=== PATIENT | male | born 1935 | race Caucasian/White ===

== ENCOUNTER 2022-11-30 06:02 | Day surgery (SDC) | payer OTHER, MEDICARE, BC ==
[2022-11-23 14:51] LABS: BASOPHILS % (AUTO) 1.1 % (0-1); EOSINOPHILS # (AUTO) 0.1 X10'3 (0-0.9); EOSINOPHILS % (AUTO) 1.7 % (0-6); LYMPHOCYTES # (AUTO) 1.2 X10'3 (1.1-4.8); LYMPHOCYTES % (AUTO) 28.1 % (21-51); MEAN CORPUSCULAR HEMOGLOBIN 31.1 PG (27.0-31.0); MEAN CORPUSCULAR HGB CONC 33.6 g/dL (33.0-36.5); MEAN CORPUSCULAR VOLUME 92.6 FL (78-98); MEAN PLATELET VOLUME 7.1 FL (7.4-10.4); MONOCYTES # (AUTO) 0.5 X10'3 (0-0.9); MONOCYTES % (AUTO) 11.9 % (2-12); NEUTROPHILS # (AUTO) 2.4 X10'3 (1.8-7.7); NEUTROPHILS % (AUTO) 57.2 % (42-75); PRE OP HEMATOCRIT 40.8 % (42.0-52.0); PRE OP HEMOGLOBIN 13.7 g/dL (14.0-17.9); PRE OP PLATELET COUNT 209 X10'3 (140-440); RED BLOOD COUNT 4.41 X10'6 (4.70-6.10); RED CELL DISTRIBUTION WIDTH 13.1 % (11.5-14.5)
[2022-11-23 15:04] LABS: ALBUMIN 3.9 G/DL (3.4-5.0); ALBUMIN/GLOBULIN RATIO 1.1 (1.1-1.5); ALKALINE PHOSPHATASE 70 IU/L (46-116); BLOOD UREA NITROGEN 12 MG/DL (7-18); CHLORIDE 105 MMOL/L (99-107); PRE OP ALT 19 U/L (30-65); PRE OP ANION GAP 8 (8-16); PRE OP AST 21 U/L (10-37); PRE OP BILIRUB, TOTAL 0.6 MG/DL (0.0-1.0); PRE OP GLUCOSE 101 MG/DL (70-104); PRE OP POTASSIUM 3.9 MMOL/L (3.4-5.1); PRE OP SODIUM 140 MMOL/L (135-145); TOTAL CARBON DIOXIDE 27.2 MMOL/L (24-32); TOTAL PROTEIN 7.5 G/DL (6.4-8.2); eGFR 58 ML/MIN
[~2022-11-30] VITALS: Ht 182.9 cm; Wt 89.4 kg
[~2022-11-30 06:02] MED LIST: CHOL200013 PO; CYAN100097 PO; DILT180C89 PO; OMEP20CA16 PO; SIMV10TA98 PO; TERA2CAP4 PO; ceFAZolin inj. 2,000 MG in dextrose 5%-water 100 ML IV ONE; famotidine 20mg tablet PO ONE; metoprolol tartrate 12.5mg (1/2 tablet) PO ONE; ringers solution, lacted 1,000 ML IV SCH
[2022-11-30 06:10] VITALS: BP 139/76
[2022-11-30] MEDS ORDERED: LIDOcaine 1% 30ml preserv. free vial ONE (07:08)
[2022-11-30] MEDS ORDERED: ceFAZolin 1000mg inj ONE (07:08)
[2022-11-30] MEDS ORDERED: BUPIVAcaine/PF 5 mg/ml 10ml ONE (07:09)
[2022-11-30] MEDS ORDERED: fentaNYL/PF 50MCG/1 ML 2ML syringe ONE (07:57)
[2022-11-30] MEDS ORDERED: midazolam 1 mg/ML 2ml injection ONE (07:58)
[2022-11-30] MEDS ORDERED: propofol inj 20 ML IV ONE (08:22)
[2022-11-30 08:30] VITALS: BP 110/61
--- NOTE | 2022-11-30 08:30 | NUR ---
Received from OR via , accompanied by Anesthesiologist and report given by Anesthesiolgist. PATIENT A&OX4, DENIES PAIN, V/S WNL, SCD ON , PIV 20G LUE, DERMABONDEDW/ STERI STRIPS LEFT CHEST CDI
[2022-11-30] MEDS ORDERED: ondansetron/PF 4mg/2ml inj IV PRN (08:35)
[2022-11-30] MEDS ORDERED: morphine 4 MG/ML inj SYRINge IV PRN (08:35)
[2022-11-30] MEDS ORDERED: ringers solution, lacted 1,000 ML IV SCH (08:35)
[2022-11-30] MEDS ORDERED: meperidine/PF 25mg/ml syringe IV PRN ×3 (08:35)
[2022-11-30] MEDS ORDERED: proCHLORperazine 10 MG/2 ml inj IV PRN (08:35)
[2022-11-30] MEDS ORDERED: morphine 2 MG/ML inj. syringe IV PRN (08:35)
[2022-11-30 08:40] VITALS: BP 116/58
[2022-11-30 08:50] VITALS: BP 101/66
[2022-11-30 09:00] VITALS: BP 112/68
[2022-11-30 09:10] VITALS: BP 109/65
--- NOTE | 2022-11-30 09:10 | NUR ---
PATIENT A&OX4, DENIES PAIN, V/S WNL, SCD OFF , PIV 20G LUE D/C, CLEAR TEGADERM W/ STERI STRIPS LEFT CHEST CDI. I HAVE REVIEWED D/C INSTRUCTIONS WITH PATIENT AND THEY HAVE VERBALIZED UNDERSTANDING OF INSTRUCTIONS. PATIENT D/C HOME WITH ALL BELONGINGS AND FAMILY GAVE TRANSPORT
--- NOTE | 2022-11-30 09:10 | NUR ---
PATIENT A&OX4, DENIES PAIN, V/S WNL, SCD O , PIV 20G LUE, DERMABONDEDW/ STERI STRIPS LEFT CHEST CDI
== END 2022-11-30 09:10 | disposition home or self-care (01) ==
LOC: PAS 06:02
PROVIDERS: ATTEND Thoracic Surgery (Cardiothoracic Vascular Surgery)
DX: Z45.010 Encounter for checking and testing of cardiac pacemaker pulse generator [battery] (principal); I10 Essential (primary) hypertension; E78.5 Hyperlipidemia, unspecified; G47.30 Sleep apnea, unspecified; M19.90 Unspecified osteoarthritis, unspecified site; K21.9 Gastro-esophageal reflux disease without esophagitis; Z79.899 Other long term (current) drug therapy; Z88.8 Allergy status to other drugs, medicaments and biological substances; Z87.891 Personal history of nicotine dependence; Z90.49 Acquired absence of other specified parts of digestive tract; Z98.890 Other specified postprocedural states
CPT/HCPCS: 33228; 36415; 80053; 82948; 85025; A6258; C1785; J0690; J2250; J2704; J3010; J3490; J7030; J7060; J7120; Z7506; Z7512; A4215; A4618; A7000

== ENCOUNTER 2023-08-01 06:08 | Inpatient (IN) | payer OTHER, MEDICARE, BC ==
[2023-08-01] VITALS (25 sets, daily range): BP systolic 87–144; BP diastolic 40–74; PULSE 59–75; RESP 10–20; TEMP 96.9–98.4; O2SAT 94–100
[~2023-08-01] VITALS: Ht 182.9 cm; Wt 88.5 kg
[~2023-08-01 06:08] MED LIST changes: +ACET-3414 PO; -ceFAZolin inj. 2,000 MG in dextrose 5%-water 100 ML IV ONE; +cefazolin 2gm/D5W 100mL 100 ML IV ONE; -metoprolol tartrate 12.5mg (1/2 tablet) PO ONE; -ringers solution, lacted 1,000 ML IV SCH; +tranexamic acid inj. 1,000 MG in normal saline IV soln 100ML IV ONE
[2023-08-01] MEDS: ringers solution, lacted 1,000 ML IV SCH ×2 (06:39→12:04)
[2023-08-01] MEDS ORDERED: vancomycin 1,000mg inj ONE (06:55)
[2023-08-01] MEDS ORDERED: methylene blue (5mg/ml) 50mg/10ml ampul IV ONE (07:18)
[2023-08-01] MEDS ORDERED: cloNIDine hcl/PF 100mcg/ml inj ONE (07:21)
[2023-08-01] MEDS ORDERED: sevoflurane 250ml liquid IH ONE (07:25)
[2023-08-01] MEDS ORDERED: fentaNYL/PF 50MCG/1 ML 2ML syringe ONE ×2 (07:28→10:20)
[2023-08-01] MEDS ORDERED: acetaminophen 325mg tablet PO PRN (07:30)
[2023-08-01] MEDS ORDERED: magnesium hydroxide 30ml (MOM) UD suspension PO PRN (07:30)
[2023-08-01] MEDS ORDERED: ondansetron/PF 4mg/2ml inj IV PRN ×2 (07:30→08:25)
[2023-08-01] MEDS ORDERED: midazolam 1 mg/ML 2ml injection ONE (07:30)
[2023-08-01] MEDS ORDERED: bisacodyl 10mg suppository rectal RC PRN (07:30)
[2023-08-01] MEDS ORDERED: diphenhydrAMINE 25mg capsule PO PRN (07:30)
[2023-08-01] MEDS ORDERED: HYDROcodone/acetaminophen 10/325mg tab PO PRN (07:30)
[2023-08-01] MEDS ORDERED: naloxone 0.4 mg/ml inj IV PRN (07:30)
[2023-08-01] MEDS ORDERED: ringers solution, lacted 1,000 ML IV SCH (08:25)
[2023-08-01] MEDS ORDERED: morphine 2 MG/ML inj. syringe IV PRN (08:25)
[2023-08-01] MEDS ORDERED: HYDROmorphone/PF 0.2 MG/ML SYRINGE IV PRN ×2 (08:25)
[2023-08-01 08:44] LABS: BILIRUBIN,URINE NEGATIVE (Neg); CLARITY,URINE CLEAR (Clear); COLOR,URINE YELLOW (Yellow); GLUCOSE, URINE NEGATIVE (Neg); KETONES,URINE NEGATIVE (Neg); LEUKOCYTE ESTERASE ,URINE NEGATIVE (Neg); NITRITES, URINE NEGATIVE (Neg); OCCULT BLOOD,URINE NEGATIVE (Neg); PH,URINE 6.5 (4.8-8.0); PROTEIN,URINE NEGATIVE (Neg); UROBILINOGEN,URINE 0.2 E.U/dL (0.2-1.0)
[2023-08-01 08:47] LABS: UA COLLECTION TYPE CLN CATCH MIDSTREAM
[2023-08-01] MEDS ORDERED: dexamethasone sod phosphate 4mg/ml inj. ONE (09:25)
[2023-08-01] MEDS ORDERED: ondansetron/PF 4mg/2ml inj ONE (09:25)
[2023-08-01] MEDS ORDERED: rocuronium 10mg/ml inj IV ONE (09:25)
[2023-08-01] MEDS ORDERED: ePHEDrine 50MG/ML INJ. ONE (09:25)
[2023-08-01] MEDS ORDERED: LIDOcaine 1%/PF 5ML 10 MG/ML VIAL ONE (09:25)
[2023-08-01] MEDS ORDERED: acetaminophen 1,000mg/100ml IV 100 ML IV ONE (09:25)
[2023-08-01] MEDS ORDERED: propofol inj 20 ML IV ONE (09:25)
[2023-08-01] MEDS ORDERED: ROPIVAcaine 0.5% (5mg/ml) 30ml vial ONE (09:25)
[2023-08-01] MEDS ORDERED: neostigmine methylsulfate 1 MG/ML 10ml vial ONE (10:27)
[2023-08-01] MEDS ORDERED: glycopyrrolate 0.2mg/ml inj ONE (10:27)
--- NOTE | 2023-08-01 10:48 | NUR ---
Received from OR via [facility], accompanied by Anesthesiologist DR. LONGORIA and report given by Anesthesiolgist. PLAN FOR PATIENT TO STAY OVERNIGHT PER DR. PAYAN ORDER DUE TO ADVANCED AGE, BREATHING/CPAP USE, COMORBIDITIES. DR. LONGORIA PERFORMING JAW THRUST, PATIENT ON 10L MASK SATURATIONS 100% ON LEFT EAR PROBE. HYPORTENSIVE. LR RUNNING AT ORDERED RATE. OCCASIONALLY ATRIAL PACED, 100% VENTRICULARLY PACED. LEFT SHOULDER ISLAND DRESSING WITH ROSE SLEEVE AND POWDER PACK PLACED.
--- NOTE | 2023-08-01 12:48 | NUR ---
PATIENT MEETS DISCHARGE CRITERIA FROM RECOVERY. REPORT CALLED TO ANJELICA Carrillo RN. TRANSFERRED TO [facility] AND PLACED ON HOSPITAL BED. TRANSFERRED WITH ALL BELONGINGS. DENIES PAIN. WIGGLES LEFT FINGERS. DRESSING CDI. NEW POWDER PACK APPLIED. DAUGHTER, [place]LANDO, AT BEDSIDE WITH PATIENT.
[2023-08-01] MEDS: potassium cl 20mEq in 1/2 NS 1,000 ML IV SCH ×2 (13:34→20:50)
[2023-08-01] MEDS: cefazolin 2gm/D5W 100mL 100 ML IV SCH (16:34)
--- NOTE | 2023-08-01 18:21 | NUR ---
Report to Serafin PUENTE
[2023-08-01] MEDS ORDERED: Terazosin 1mg capsule PO SCH (21:00)
[2023-08-01] MEDS ORDERED: atorvastatin 10mg tablet PO SCH (21:00)
[2023-08-02] MEDS: cefazolin 2gm/D5W 100mL 100 ML IV SCH (00:07)
[2023-08-02] MEDS: HYDROcodone/acetaminophen 10/325mg tab PO PRN ×2 (00:11→03:58)
[2023-08-02 02:30] VITALS: BP 111/54; PULSE 62; RESP 16; TEMP 96.6; O2SAT 93
[2023-08-02] MEDS: potassium cl 20mEq in 1/2 NS 1,000 ML IV SCH (03:12)
[2023-08-02 06:00] VITALS: BP 126/52; PULSE 62; RESP 20; TEMP 97; O2SAT 94
--- NOTE | 2023-08-02 06:19 | NUR ---
reported to days. noted difficult surgery - PT to start today and next norco due at 0800. sling on but not attached. pt using urinal w/o difficulty
[2023-08-02 07:35] LABS: ANION GAP 7 (8-16); CHLORIDE 100 MMOL/L (99-107); POTASSIUM 4.6 MMOL/L (3.5-5.1); SODIUM 131 MMOL/L (135-145); TOTAL CARBON DIOXIDE 23.7 MMOL/L (24-32)
[2023-08-02] MEDS ORDERED: pantoprazole 40mg Tablet.DR PO SCH (08:00)
[2023-08-02] MEDS ORDERED: diltiazem CD 180mg cap (once-daily) PO SCH (08:00)
[2023-08-02] MEDS ORDERED: cholecalciferol (vitamin D3) 1,000 unit (25mcg) tablet PO SCH (08:00)
[2023-08-02 08:26] LABS: BASOPHILS % (AUTO) 0 % (0-1); EOSINOPHILS % (AUTO) 0 % (0-6); HEMATOCRIT 36.3 % (42.0-52.0); HEMOGLOBIN 12.2 g/dl (14.0-17.9); LYMPHOCYTES # (AUTO) 0.8 X10'3 (1.1-4.8); LYMPHOCYTES % (AUTO) 5.8 % (21-51); MEAN CORPUSCULAR HEMOGLOBIN 31.7 PG (27.0-31.0); MEAN CORPUSCULAR HGB CONC 33.5 g/dL (33.0-36.5); MEAN CORPUSCULAR VOLUME 94.6 FL (78-98); MEAN PLATELET VOLUME 8.3 FL (7.4-10.4); MONOCYTES # (AUTO) 0.6 X10'3 (0-0.9); MONOCYTES % (AUTO) 4.7 % (2-12); NEUTROPHILS # (AUTO) 11.6 X10'3 (1.8-7.7); NEUTROPHILS % (AUTO) 89.5 % (42-75); PLATELET COUNT 201 X10'3 (140-440); RED BLOOD COUNT 3.83 X10'6 (4.70-6.10); RED CELL DISTRIBUTION WIDTH 12.7 % (11.5-14.5); WHITE BLOOD COUNT 12.9 X10'3 (4.5-11.0)
[2023-08-02 10:00] VITALS: BP 133/53; PULSE 69; RESP 16; TEMP 97.1; O2SAT 96
--- NOTE | 2023-08-02 11:50 | NUR ---
Joint surgery consult: Pt s/p L shoulder surgery this admit per EMR. Pt seen by CLARK for written/verbal high protein diet ed w/ RD contact information provided. CLARK encouraged pt to contact dietitian's office if further nutrition questions/concerns. Addendum: 08/02/23 at [address] Amended: Links added.
[2023-08-03] MEDS ORDERED: cyanocobalamin 500mcg tablet PO SCH (08:00)
== END 2023-08-02 14:15 | disposition home or self-care (01) | DRG 501 ==
LOC: PAS 06:08 → PAS IN 07:35 → ORTHO 4S 12:48 → OBSVTOIN 13:00
PROVIDERS: ADMIT Specialist; ATTEND Specialist
PROC: 0LS40ZZ Reposition Left Upper Arm Tendon, Open Approach (ICD-10-PCS; 2023-08-01)
PROC: 0PS804Z Reposition Left Glenoid Cavity with Internal Fixation Device, Open Approach (ICD-10-PCS; principal; 2023-08-01 07:25)
DX: S42.142A Displaced fracture of glenoid cavity of scapula, left shoulder, initial encounter for closed fracture (principal); E87.1 Hypo-osmolality and hyponatremia; G47.30 Sleep apnea, unspecified; W18.39XA Other fall on same level, initial encounter; E78.5 Hyperlipidemia, unspecified; Y93.89 Activity, other specified; Y92.89 Other specified places as the place of occurrence of the external cause; Y99.8 Other external cause status; Z87.11 Personal history of peptic ulcer disease; Z79.899 Other long term (current) drug therapy; Z88.4 Allergy status to anesthetic agent; Z88.6 Allergy status to analgesic agent
CPT/HCPCS: 36415; 73030; 76000; 80051; 81003; 82948; 85025; 86885; 86900; 86901; 87081; 97110; 97116; 97161; 97530; A4565; A4615; A4618; A6449; A6455; A7000; C1713; C1769; G0378; J0131; J0690; J0735; J1100; J2250; J2405; J2704; J2710; J2795; J3010; J3370; J3480; J3490; J7120; Q9968